=== PATIENT | female | born 1940 | race Caucasian/White ===

== ENCOUNTER 2022-05-09 19:54 | Emergency (ER) | payer MEDICARE, OTHER | END 2022-05-09 21:36 | disposition home or self-care (01) | LOC: FB.ED 19:54 | DX: S43.401A Unspecified sprain of right shoulder joint, initial encounter (principal); Z88.2 Allergy status to sulfonamides; Z79.899 Other long term (current) drug therapy; W10.9XXA Fall (on) (from) unspecified stairs and steps, initial encounter | CPT/HCPCS: 73060-RT; 73130-RT; 99281; 99283 ==